=== PATIENT | female | born 1990 | race African-American/Black ===

== ENCOUNTER 2023-04-10 14:51 | Emergency (ER) | payer OTHER ==
[~2023-04-10] VITALS: Ht 175.3 cm; Wt 63.5 kg
[2023-04-10] MEDS ORDERED: LORAZEPAM 2 MG/1 ML VIAL IV ONE (15:00)
[2023-04-10] MEDS ORDERED: LORAZEPAM 2 MG/1 ML VIAL ONE (15:03)
[2023-04-10 15:50] LABS: CALCIUM 10.2 mg/dL (8.5-10.1); POTASSIUM 3.7 mmol/L (3.5-5.1)
[2023-04-10 15:52] LABS: BASOPHILS % (AUTO) 0.4 % (0.0-2.0); EOSINOPHILS % (AUTO) 0.5 % (0.0-7.0); HEMATOCRIT 38.6 % (31.2-41.9); HEMOGLOBIN 12.9 g/dL (10.9-14.3); LYMPHOCYTES # (AUTO) 1.4 K/uL (0.8-4.8); LYMPHOCYTES % (AUTO) 32.6 % (20.5-51.5); MEAN CORPUSCULAR HEMOGLOBIN 32.1 uug (24.7-32.8); MEAN CORPUSCULAR HGB CONC 33 g/dL (32.3-35.6); MEAN CORPUSCULAR VOLUME 96.2 fL (75.5-95.3); MONOCYTES # (AUTO) 0.3 K/uL (0.1-1.30); MONOCYTES % (AUTO) 6.1 % (0.0-11.0); NEUTROPHILS # (AUTO) 2.6 K/uL (1.8-8.9); NEUTROPHILS % (AUTO) 60.4 % (38.5-71.5); PLATELET COUNT (AUTO) 251 K/uL (179-408); RED BLOOD CELL COUNT(AUTO) 4.01 MIL/uL (3.63-4.92); RED CELL DISTRIBUTION WIDTH 13.2 % (12.3-17.7); WHITE BLOOD COUNT (AUTO) 4.3 K/uL (3.8-11.8)
[2023-04-10 17:06] VITALS: BP 117/79; O2SAT 99
== END 2023-04-10 17:06 | disposition home or self-care (01) ==
LOC: ER 14:54
DX: F43.10 Post-traumatic stress disorder, unspecified (principal); R07.89 Other chest pain; V43.52XA Car driver injured in collision with other type car in traffic accident, initial encounter; Y93.89 Activity, other specified; Y92.410 Unspecified street and highway as the place of occurrence of the external cause; Y99.8 Other external cause status
CPT/HCPCS: 99285; 96374; 70450; 71045; 80048; 85025; 36415; J2060; A4606; A4663